=== PATIENT | female | born 1960 | race Caucasian/White ===

== ENCOUNTER → 2017-09-18 | Outpatient (CLI) | payer OTHER ==
[~2017-09-18] MED LIST: MULT-224 PO
== END ==
LOC: STAR 07:49
PROVIDERS: ATTEND Orthopaedic Surgery
DX: Z02.9 Encounter for administrative examinations, unspecified (principal)

== ENCOUNTER 2017-10-02 08:32 | Day surgery (SDC) | payer OTHER ==
[~2017-10-02] VITALS: Ht 160 cm; Wt 50.0 kg
[~2017-10-02 08:32] MED LIST changes: +BUPIVACAINE/PF 0.5% ONE; +EPINEPHRINE 1 MG/ML, 1ML ONE; +LIDOCAINE/PF 1%-EPI 1:200K, 30 ML ONE
[2017-10-02 08:45] VITALS: BP 117/84
[2017-10-02] MEDS ORDERED: MIDAZOLAM 1 MG/ML, 2ML ONE (08:47)
[2017-10-02] MEDS ORDERED: FENTANYL PF 100 MCG/2ML ONE ×2 (08:47→09:59)
[2017-10-02] MEDS ORDERED: LACTATED RINGERS 1,000 ML IV SCH (08:49)
[2017-10-02] MEDS ORDERED: DEXAMETHASONE 4 MG/ML, 1ML ONE (09:08)
[2017-10-02] MEDS ORDERED: CEFAZOLIN 1,000 MG ONE (09:08)
[2017-10-02] MEDS ORDERED: ONDANSETRON 2MG/ML, 2ML ONE (09:08)
[2017-10-02] MEDS ORDERED: PROPOFOL 10 MG/ML, 20ML ONE (09:08)
[2017-10-02] MEDS ORDERED: ACETAMINOPHEN 650 MG/20.3 ML UDC ONE (09:59)
[2017-10-02] MEDS ORDERED: OXYcodone 5 MG/5 ML ORAL.SOL UDC ONE (09:59)
[2017-10-02] MEDS: FENTANYL PF 100 MCG/2ML IV PRN ×3 (10:03→10:26)
[2017-10-02] MEDS ORDERED: ACETAMINOPHEN 325 MG TABLET PO PRN (10:30)
[2017-10-02] MEDS ORDERED: OXYcodone 5 MG/5 ML ORAL.SOL UDC PO PRN (10:30)
[2017-10-02] MEDS ORDERED: HYDROmorphone 2 MG/ML, 1ML ONE (10:36)
[2017-10-02] MEDS ORDERED: HYDROmorphone 1 MG/ML, 1ML IV PRN (11:00)
== END 2017-10-02 12:20 | disposition home or self-care (01) ==
LOC: OUT 08:32
PROVIDERS: ATTEND Orthopaedic Surgery
DX: M77.8 Other enthesopathies, not elsewhere classified (principal)
CPT/HCPCS: 25295; J0690; J1100; J1170; J2250; J2405; J2704; J3010; J3490; J7120; J0171

== ENCOUNTER → 2018-01-21 | Outpatient (CLI) | payer OTHER ==
[~2018-01-21] MED LIST changes: -BUPIVACAINE/PF 0.5% ONE; -EPINEPHRINE 1 MG/ML, 1ML ONE; +GADOBUTROL 7.5 MMOL/7.5 ML PFS ONE; -LIDOCAINE/PF 1%-EPI 1:200K, 30 ML ONE
== END | disposition home or self-care (01) ==
LOC: RAD 10:54
PROVIDERS: ATTEND Psychiatry & Neurology Neurology
DX: G51.0 Bell's palsy (principal)
CPT/HCPCS: 70553; A9585

== ENCOUNTER → 2018-07-03 | Outpatient (CLI) | payer OTHER ==
[~2018-07-03] MED LIST changes: -GADOBUTROL 7.5 MMOL/7.5 ML PFS ONE
== END | disposition home or self-care (01) ==
LOC: CFH 07:09
PROVIDERS: ATTEND Orthopaedic Surgery
DX: S83.241A Other tear of medial meniscus, current injury, right knee, initial encounter (principal); X58.XXXA Exposure to other specified factors, initial encounter; Y93.89 Activity, other specified; Y92.89 Other specified places as the place of occurrence of the external cause; Y99.8 Other external cause status

== ENCOUNTER 2019-07-03 11:45 | Outpatient (CLI) | payer OTHER ==
[~2019-07-03 11:45] MED LIST changes: -MULT-224 PO; +MULT-642 PO
== END 2019-07-03 23:59 | disposition home or self-care (01) ==
LOC: CVU 11:45
PROVIDERS: ATTEND Nurse Practitioner Primary Care
DX: G51.0 Bell's palsy (principal)
CPT/HCPCS: 93005

== ENCOUNTER → 2019-09-28 | Outpatient (CLI) | payer OTHER ==
[2019-09-28 13:34] LABS: FREE T4 (FREE THYROXINE) 0.87 ng/dL (0.76-1.46)
== END | disposition home or self-care (01) ==
LOC: CFH 10:09
PROVIDERS: ATTEND Specialist
DX: E03.9 Hypothyroidism, unspecified (principal)
CPT/HCPCS: 36415; 84439; 84443

== ENCOUNTER 2019-10-22 07:27 | Outpatient (CLI) | payer OTHER | END 2019-10-22 23:59 | disposition home or self-care (01) | LOC: CFH 07:27 → EDSTATUS 08:00 → CFH 23:59 | PROVIDERS: ATTEND Specialist | DX: Z12.31 Encounter for screening mammogram for malignant neoplasm of breast (principal); N64.89 Other specified disorders of breast | CPT/HCPCS: 77063; 77067 ==

== ENCOUNTER 2021-05-23 09:09 | Outpatient (CLI) | payer OTHER ==
[2021-05-23 09:32] LABS: BASOPHILS % (AUTO) 1 % (0-1); EOSINOPHILS % (AUTO) 2 % (1-7); LYMPHOCYTES % (AUTO) 24 % (22-44); MEAN CORPUSCULAR HEMOGLOBIN 32.2 pg (27.0-34.8); MEAN CORPUSCULAR HGB CONC 33.8 g/dL (32.4-35.8); MEAN PLATELET VOLUME 7.3 fL (7.4-10.4); MONOCYTES % (AUTO) 8 % (2-9); NEUTROPHILS % (AUTO) 67 % (42-75); PLATELET COUNT 321 x10^3/uL (130-400); RED BLOOD COUNT 4.26 x10^6/uL (3.82-5.3); RED CELL DISTRIBUTION WIDTH 13.4 % (9.6-15.2)
[2021-05-23 09:38] LABS: ALANINE AMINOTRANSFERASE 33 U/L (12-78); ALBUMIN 3.5 g/dL (3.4-5.0); ANION GAP 3 mmol/L (5-15); CALCIUM 8.4 mg/dL (8.5-10.1); CHLORIDE 110 mmol/L (98-107)
[2021-05-23 09:41] LABS: ALKALINE PHOSPHATASE 57 U/L (45-117); BILIRUBIN,TOTAL 0.5 mg/dL (0.2-1.0); CHOLESTEROL, TOTAL 133 mg/dL (140-239); CREATININE 0.78 mg/dL (0.55-1.02); HDL CHOL % 49 % (28-40); HDL CHOLESTEROL (DIRECT) 65 mg/dL (40-60); LDL CHOLESTEROL,CALCULATED 58 mg/dL (54-169); LDL/HDL RATIO 0.9 (0.5-3.0); TOTAL PROTEIN 6.6 g/dL (6.4-8.2); TRIGLYCERIDES 48 mg/dL (50-200); VLDL CHOLESTEROL 10 mg/dL (0-25)
== END 2021-05-23 23:59 | disposition home or self-care (01) ==
LOC: LAB 09:09
PROVIDERS: ATTEND Internal Medicine
DX: Z00.00 Encounter for general adult medical examination without abnormal findings (principal); R03.0 Elevated blood-pressure reading, without diagnosis of hypertension; E78.49 Other hyperlipidemia
CPT/HCPCS: 36415; 80053; 80061; 85025